=== PATIENT | female | born 1990 | race Caucasian/White ===

== ENCOUNTER → 2022-06-20 | Outpatient (CLI) | payer OTHER | LOC: M RAD 14:57 | PROVIDERS: ATTEND Obstetrics & Gynecology | DX: O02.0 Blighted ovum and nonhydatidiform mole (principal); O08.9 Unspecified complication following an ectopic and molar pregnancy; Z3A.09 9 weeks gestation of pregnancy ==

== ENCOUNTER 2022-07-03 14:29 | Emergency (ER) | payer OTHER ==
[~2022-07-03] VITALS: Ht 167.6 cm; Wt 86.4 kg
[2022-07-03] MEDS ORDERED: NS 1,000 ML IV ONE (14:55)
[2022-07-03 15:19] LABS: BASO % 0.3 % (0.0-1.0); EOS # 0.2 10^3/uL (0.0-0.5); EOS % 1.4 % (0.0-3.0); HEMATOCRIT 35.1 % (36.0-47.0); HEMOGLOBIN 11.9 g/dl (12.0-15.5); LYMPH # 2.2 10^3/uL (1.5-5.0); LYMPH % 21.3 % (24.0-44.0); MEAN CORPUSCULAR HEMOGLOBIN 32.4 pg (27.0-33.0); MEAN CORPUSCULAR HGB CONC 33.9 g/dl (32.0-36.5); MEAN CORPUSCULAR VOLUME 95.6 fl (80.0-96.0); MONO # 0.4 10^3/uL (0.0-0.8); MONO % 3.8 % (2.0-8.0); NEUTROPHILS # 7.6 10^3/uL (1.5-8.5); NEUTROPHILS % 72.9 % (36.0-66.0); PLATELET COUNT, AUTOMATED 195 10^3/uL (150-450); RED BLOOD COUNT 3.67 10^6/uL (4.00-5.40); WHITE BLOOD COUNT 10.4 10^3/uL (4.0-10.0)
[2022-07-03 15:35] LABS: INR 1.03; PROTHROMBIN TIME 13.7 SECONDS (12.5-14.5)
[2022-07-03 15:46] LABS: BLOOD UREA NITROGEN 12 MG/DL (9-23); CALCIUM LEVEL 8.7 MG/DL (8.5-10.1); CARBON DIOXIDE LEVEL 23 MMOL/L (20-31); CHLORIDE LEVEL 108 MMOL/L (98-107); CREATININE FOR GFR 0.77 MG/DL (0.55-1.30); GLOMERULAR FILTRATION RATE > 60.0 (>60); GLUCOSE, FASTING 86 MG/DL (60-100); PARTIAL THROMBOPLASTIN TIME 27.5 SECONDS (24.8-34.2); POTASSIUM SERUM 3.9 MMOL/L (3.5-5.1); SODIUM LEVEL 139 MMOL/L (136-145)
[2022-07-03 16:00] LABS: HCG, SERUM QUANTITATIVE 2051.8 MIU/ML (<4.2)
[2022-07-03 16:04] LABS: RSV AMPLIFICATION NEGATIVE (NEGATIVE)
[2022-07-03 17:00] VITALS: BP 104/64
== END 2022-07-03 18:18 | disposition home or self-care (01) ==
LOC: M ED 14:29
DX: O20.0 Threatened abortion (principal); F17.200 Nicotine dependence, unspecified, uncomplicated; Z3A.11 11 weeks gestation of pregnancy

== ENCOUNTER 2022-07-04 13:34 | Day surgery (SDC) | payer OTHER ==
[~2022-07-04] VITALS: Ht 167.6 cm; Wt 85.2 kg
[2022-07-04] MEDS ORDERED: DOXYCYCLINE HYCLATE 100MG TABLET PO ONE (13:55)
[2022-07-04] MEDS ORDERED: KETOROLAC 30 MG/ML 1ML VIAL IV ONE (14:25)
[2022-07-04] MEDS ORDERED: LR 1,000 ML IV SCH (14:25)
[2022-07-04] MEDS ORDERED: ACETAMINOPHEN 1000MG 100ML IV BAG IV ONE (14:25)
[2022-07-04] MEDS ORDERED: ONDANSETRON 4MG 2ML VIAL IV PRN ×2 (14:25→19:35)
[2022-07-04] MEDS ORDERED: propofoL 200 MG/20 ML VIAL As Ordered ONE ×2 (18:07→18:37)
[2022-07-04] MEDS ORDERED: ONDANSETRON 4MG 2ML VIAL As Ordered ONE (18:07)
[2022-07-04] MEDS ORDERED: KETOROLAC 60MG 2ML VIAL As Ordered ONE (18:07)
[2022-07-04] MEDS ORDERED: MIDAZOLAM INJ 2MG/2ML VIAL As Ordered ONE (18:07)
[2022-07-04] MEDS ORDERED: fentaNYL 100 MCG/2 ML INJECTION As Ordered ONE (18:07)
[2022-07-04] MEDS ORDERED: LIDOCAINE 2% 100MG/5ML SDV (FOR ANES.) As Ordered ONE (18:07)
[2022-07-04] MEDS ORDERED: LIDOCAINE 1% SDV 30ML VIAL As Ordered ONE (18:08)
[2022-07-04] MEDS ORDERED: SILVER NITRATE APPLICATOR (1 = QTY 10) As Ordered ONE (18:54)
[2022-07-04] MEDS ORDERED: oxyCODONE 5MG TAB PO PRN ×2 (19:15)
[2022-07-04 20:27] VITALS: BP 118/71
== END 2022-07-04 20:32 | disposition home or self-care (01) ==
LOC: M SDC 13:34
PROVIDERS: ATTEND Obstetrics & Gynecology
DX: O02.1 Missed abortion (principal); F17.210 Nicotine dependence, cigarettes, uncomplicated
CPT/HCPCS: 36415; 59820; 86850; 86900; 86901; 88305; J0131; J1100; J1885; J2250; J2405; J3010

== ENCOUNTER 2022-12-31 18:16 | Emergency (ER) | payer OTHER ==
[~2022-12-31] VITALS: Ht 165.1 cm; Wt 81.6 kg
[2022-12-31 18:16] VITALS: TEMP 100.3
[2022-12-31] MEDS ORDERED: APAP325T4 PO (18:22)
[2022-12-31] MEDS ORDERED: NIRMATRELVIR/RITONAVIR CO-PACK (EMERGENCY USE AUTH) PO SCH ×2 (21:00→23:45)
[2022-12-31] MEDS: NS 1,000 ML IV ONE (21:45)
[2022-12-31] MEDS: ACETAMINOPHEN TAB 650MG DOSE (2X325MG) PO ONE (21:45)
[2022-12-31 22:08] LABS: BASO % 0.3 % (0.0-1.0); HEMATOCRIT 35.3 % (36.0-47.0); HEMOGLOBIN 11.5 g/dl (12.0-15.5); LYMPH # 0.4 10^3/uL (1.5-5.0); LYMPH % 10.5 % (24.0-44.0); MEAN CORPUSCULAR HGB CONC 32.6 g/dl (32.0-36.5); MEAN CORPUSCULAR VOLUME 85.9 fl (80.0-96.0); MONO # 0.3 10^3/uL (0.0-0.8); MONO % 8.5 % (2.0-8.0); NEUTROPHILS # 2.9 10^3/uL (1.5-8.5); NEUTROPHILS % 80.4 % (36.0-66.0); PLATELET COUNT, AUTOMATED 190 10^3/uL (150-450); RED BLOOD COUNT 4.11 10^6/uL (4.00-5.40); WHITE BLOOD COUNT 3.6 10^3/uL (4.0-10.0)
[2022-12-31 22:21] LABS: ALKALINE PHOSPHATASE 73 U/L (46-116); ALT/SGPT 17 U/L (7.0-40); AST/SGOT 12 U/L (<34); BILIRUBIN,DIRECT 0.1 MG/DL (<0.4); BILIRUBIN,TOTAL 0.3 MG/DL (0.3-1.2); BLOOD UREA NITROGEN 13 MG/DL (9-23); CARBON DIOXIDE LEVEL 22 MMOL/L (20-31); CHLORIDE LEVEL 107 MMOL/L (98-107); CREATININE FOR GFR 0.81 MG/DL (0.55-1.30); GLOMERULAR FILTRATION RATE > 60.0 (>60); GLUCOSE, FASTING 84 MG/DL (60-100); POTASSIUM SERUM 3.8 MMOL/L (3.5-5.1); SODIUM LEVEL 140 MMOL/L (136-145); TOTAL PROTEIN 7.1 G/DL (5.7-8.2)
[2022-12-31 22:34] LABS: HCG, SERUM QUALITATIVE NEGATIVE (NEGATIVE)
[2022-12-31] MEDS ORDERED: HOME MED LIST COMPLETE! XX SCH (23:35)
[2022-12-31 23:45] VITALS: BP 110/61; O2SAT 98
== END 2023-01-01 00:08 | disposition home or self-care (01) ==
LOC: M ED 18:16
DX: U07.1 COVID-19 (principal)

== ENCOUNTER → 2024-03-18 | Outpatient (CLI) | payer OTHER ==
[~2024-03-18] MED LIST: APAP325T4 PO
== END ==
LOC: M WHC 10:34
PROVIDERS: ATTEND Obstetrics & Gynecology
DX: O26.843 Uterine size-date discrepancy, third trimester (principal); Z3A.34 34 weeks gestation of pregnancy

== ENCOUNTER → 2024-03-30 | Outpatient (REF) | payer OTHER | LOC: M SFHCWAGY 17:08 | PROVIDERS: ATTEND Obstetrics & Gynecology | DX: Z34.93 Encounter for supervision of normal pregnancy, unspecified, third trimester (principal); Z3A.35 35 weeks gestation of pregnancy ==

== ENCOUNTER → 2024-10-31 | Outpatient (CLI) | payer OTHER ==
[~2024-10-31] MED LIST changes: +BAYE81TA10 PO; +CHOL50TA8 PO; +COLA100C5 PO; +FAMO20TA PO; +FERR325T19; +IBUP80TA PO; +MULTTAB20 PO; +PERCOCET PO; +PLAQ200T4; +PROHANCE 279.3MG/ML 15ML VIAL ONE; +PROHANCE 279.3MG/ML 5ML VIAL ONE; +PROT1TAB2 PO; +VITA100093; +VITA500T9
== END ==
LOC: M PLAIMG 07:39
PROVIDERS: ATTEND Nurse Practitioner Family
DX: R10.11 Right upper quadrant pain (principal)
CPT/HCPCS: 74183; A9576

== ENCOUNTER 2025-01-17 06:11 | Day surgery (SDC) | payer OTHER ==
[~2025-01-17] VITALS: Ht 165.1 cm; Wt 91.0 kg
[~2025-01-17 06:11] MED LIST changes: -FERR325T19; +FERR325T19 PO; -PLAQ200T4; +PLAQ200T4 PO; -PROHANCE 279.3MG/ML 15ML VIAL ONE; -PROHANCE 279.3MG/ML 5ML VIAL ONE; -VITA100093; +VITA100093 PO; -VITA500T9; +VITA500T9 PO
[2025-01-17 06:54] LABS: PLATELET COUNT, AUTOMATED 271 10^3/uL (150-450)
[2025-01-17] MEDS ORDERED: ROCURONIUM BROMIDE 50MG/5ML VIAL As Ordered ONE (07:11)
[2025-01-17] MEDS: metroNIDAZOLE 500 MG in IV 1 EA IV ONE (07:11)
[2025-01-17] MEDS ORDERED: LIDOCAINE 2% 100 MG/5 ML SDV (FOR ANES.) As Ordered ONE (07:11)
[2025-01-17] MEDS ORDERED: MIDAZOLAM INJ 2 MG/2 ML VIAL As Ordered ONE (07:12)
[2025-01-17] MEDS: SCOPOLAMINE 1MG TRANSDERMAL PATCH TOP ONE (07:21)
[2025-01-17] MEDS ORDERED: ACETAMINOPHEN 1000MG/100ML IV BAG As Ordered ONE (07:40)
[2025-01-17] MEDS ORDERED: dexmedeTOMIDine (4 MCG/ML) 200 MCG/50 ML BTL As Ordered ONE (07:40)
[2025-01-17] MEDS: ENOXAPARIN 40 MG/0.4 ML SYRINGE (J1650 PER 10MG) SC ONE (07:56)
[2025-01-17] MEDS: ceFAZolin SOD 2 GM IV ONCE IV ONE (07:57)
[2025-01-17] MEDS ORDERED: dexAMETHasone 4 MG/ML 1 ML VIAL As Ordered ONE (07:57)
[2025-01-17] MEDS ORDERED: ONDANSETRON 4MG/2ML VIAL As Ordered ONE (07:57)
[2025-01-17] MEDS ORDERED: SUGAMMADEX SODIUM 500 MG/5 ML VIAL As Ordered ONE (08:39)
[2025-01-17] MEDS ORDERED: KETOROLAC 30 MG/ML 1 ML VIAL As Ordered ONE (08:39)
[2025-01-17] MEDS ORDERED: DESFLURANE 240 ML INHALANT As Ordered ONE (10:00)
[2025-01-17] MEDS: SILVER NITRATE APPLICATOR (1 = QTY 10) As Ordered ONE (10:10)
[2025-01-17] MEDS: ONDANSETRON 4MG/2ML VIAL IV PRN (10:35)
[2025-01-17] MEDS: HYDROMORPHONE HCL 0.5 MG/0.5 ML SYRINGE IV PRN (10:43)
[2025-01-17 11:50] VITALS: TEMP 97.7; O2SAT 100
[2025-01-17] MEDS ORDERED: GABAPENTIN 300 MG CAP PO PRN (12:15)
[2025-01-17 12:45] VITALS: BP 130/80
== END 2025-01-17 12:44 | disposition home or self-care (01) ==
LOC: M SDC 06:11
PROVIDERS: ATTEND Obstetrics & Gynecology
DX: N93.9 Abnormal uterine and vaginal bleeding, unspecified (principal); N88.8 Other specified noninflammatory disorders of cervix uteri; N87.9 Dysplasia of cervix uteri, unspecified; D68.61 Antiphospholipid syndrome
CPT/HCPCS: 36415; 58571; 85027; 86850; 86900; 86901; 88307; J0131; J0665; J0688; J1100; J1171; J1650; J1836; J1885; J2250; J2405; J2765; J3010